=== PATIENT | male | born 1960 | race African-American/Black ===

== ENCOUNTER 2021-03-01 09:16 | Emergency (ER) | payer MEDICAID, OTHER ==
[~2021-03-01] VITALS: Ht 172.7 cm; Wt 68.0 kg
[2021-03-01 09:18] VITALS: BP 177/116
== END 2021-03-01 09:44 | disposition left against medical advice (07) ==
LOC: ER 09:16
DX: R10.9 Unspecified abdominal pain (principal); R11.2 Nausea with vomiting, unspecified; Z53.21 Procedure and treatment not carried out due to patient leaving prior to being seen by health care provider
CPT/HCPCS: 93005